=== PATIENT | female | born 1930 | race Caucasian/White ===

== ENCOUNTER 2016-11-22 15:43 | Outpatient (CLI) | payer MEDICARE | END 2016-11-22 15:44 | disposition home or self-care (01) | DX: M19.011 Primary osteoarthritis, right shoulder (principal) ==

== ENCOUNTER 2016-12-06 11:33 | Observation (INO) | payer MEDICARE ==
[2016-12-06] MEDS ORDERED: ASPIRIN CHEW 81 MG TABLET PO STA (12:12)
[2016-12-06] MEDS ORDERED: ASPIRIN CHEW 81 MG TABLET ONE (12:14)
[2016-12-06] MEDS ORDERED: SODIUM CHLORIDE FLUSH 0.9% 10 ML SYRINGE IVP PRN (14:10)
[2016-12-06] MEDS ORDERED: ONDANSETRON 4 MG/2 ML VIAL IVP PRN (14:10)
[2016-12-06] MEDS: SODIUM CHLORIDE FLUSH 0.9% 10 ML SYRINGE IVP SCH (21:29)
[2016-12-07] MEDS: SODIUM CHLORIDE FLUSH 0.9% 10 ML SYRINGE IVP SCH (06:43)
[2016-12-07] MEDS ORDERED: SALINE ENEMA 133 ML BOTTLE RC SCH (07:00)
[2016-12-07] MEDS ORDERED: ENOXAPARIN 40 MG/0.4 ML SYRINGE SUBQ SCH (09:00)
[2016-12-07] MEDS ORDERED: POLYETHYLENE GLYCOL 3350 17 GM PACKET PO SCH (09:00)
== END 2016-12-07 11:39 | disposition home or self-care (01) ==
DX: I10 Essential (primary) hypertension (principal); E03.9 Hypothyroidism, unspecified; F41.0 Panic disorder [episodic paroxysmal anxiety]; Z79.899 Other long term (current) drug therapy; Z66 Do not resuscitate
CPT/HCPCS: 36415; 71020; 80053; 80061; 81001; 83690; 84484; 85025; 85379; 93005; 93010; 93306; 99284; 99285; A9270; G0378

== ENCOUNTER 2017-07-12 11:16 | Outpatient (CLI) | payer MEDICARE ==
[2017-07-12 17:59] LABS: BUN - BLOOD UREA NITROGEN 19 mg/dL (6-20); CALCIUM 9.3 mg/dL (8.5-10.3); CARBON DIOXIDE - CO2 28 mmol/L (21-32); CHLORIDE 103 mmol/L (101-111); CREATININE 0.8 mg/dL (0.4-1.0); GFR - MDRD 68 (>89); GLUCOSE 99 mg/dL (70-100); POTASSIUM 3.8 mmol/L (3.5-5.0); SODIUM 139 mmol/L (135-145)
[2017-07-12 18:07] LABS: HEMOGLOBIN A1C 0.49 g/dL
== END 2017-07-12 11:17 | disposition home or self-care (01) ==
LOC: LAB.F 11:16
PROVIDERS: ATTEND Family Medicine
DX: D64.9 Anemia, unspecified (principal); R73.09 Other abnormal glucose; E03.9 Hypothyroidism, unspecified; I10 Essential (primary) hypertension
CPT/HCPCS: 36415; 80048; 83036; 84443

== ENCOUNTER 2017-10-04 13:42 | Outpatient (CLI) | payer MEDICARE ==
--- NOTE | 2017-10-06 14:01 | Mammography Report ---
DATE OF SERVICE: 10/04/2017 DIGITAL SCREENING MAMMOGRAM: 10/04/2017 CLINICAL INDICATION: An 87-year-old for screening. COMPARISON: 09/2016, 09/2015, 09/2014, 08/2013, 08/2012, 08/2011, 08/2010. TECHNIQUE: Routine CC and MLO projections were obtained of the breasts. FINDINGS: The breasts demonstrate scattered fibroglandular densities bilaterally. Coarse and puncta te, typically benign calcifications are present, no suspicious masses, clustered microcalcifications, or regions of architectural distortion are identified. IMPRESSION: Benign findings. RECOMMENDATION: Routine annual screening unless otherwise clinically indicated. BIRADS category 2 - Benign findings. STANDARD QUALIFYING STATEMENTS 1. This examination was reviewed with the aid of Computer-Aided Detection (CAD). 2. A negative or benign imaging report should not delay biopsy if clinically suspicious findings are present. Consider surgical consultation if warranted. More than 5% of cancers are not identified by imaging. 3. Dense breasts may obscure an underlying neoplasm. TD: 10/05/2017 10:59
== END 2017-10-04 13:43 | disposition home or self-care (01) ==
LOC: DI.S 13:42
PROVIDERS: ATTEND Family Medicine
DX: Z12.31 Encounter for screening mammogram for malignant neoplasm of breast (principal)
CPT/HCPCS: 77067

== ENCOUNTER 2018-02-24 15:37 | Outpatient (CLI) | payer MEDICARE ==
--- NOTE | 2018-02-25 22:03 | MRI Report ---
EXAM: RIGHT SHOULDER MRI WITHOUT CONTRAST EXAM DATE: 02/24/2018 04:39 PM. CLINICAL HISTORY: Right shoulder tendinitis. Previous right shoulder injury on 01/18/2018. Previous r otator cuff surgery in 2006. Previous labral surgery in 2008. COMPARISON: Right shoulder radiography from 11/22/2016 and right shoulder MRI from 11/25/2008. TECHNIQUE: Multiplanar, multisequence T1-weighted and fluid-sensitive sequences of the shoulder witho ut contrast. Other: None. FINDINGS: Acromioclavicular Region: The acromion is small from previous acromioplasty. Previous distal clavicle excision. Postoperative artifacts adjacent to the acromion and the distal aspect of the clavicle. Th e coracoacromial and coracoclavicular ligaments are intact. No subacromial/subdeltoid bursal fluid. Glenohumeral Region: No subluxation. Very small joint effusion. No loose bodies. The articular cartil age is unremarkable. The glenohumeral ligaments and joint capsule are unremarkable. Bone Marrow: Postoperative changes, postoperative artifacts, and enthesophytes at the greater tuberos ity. No acute fracture or bone lesions. Labrum: The superior labrum is partially absent, which may be due to degeneration or postoperative ch roseanna. No definite tear is seen. Musculature/Rotator Cuff: Postoperative artifacts at the distal supraspinatus tendon. The supraspinat us, infraspinatus, teres minor, and subscapularis tendons are intact without evidence of tear. No caitlyn ma or fatty atrophy. Biceps Tendon: The intra-articular segment of the long head biceps tendon is not seen. The bicipital groove segment of the long head biceps tendon is unremarkable. The findings may be due to previous bi ceps tenodesis. Other: The subcutaneous tissues are unremarkable. IMPRESSION: 1. Previous acromioplasty, distal clavicle excision, rotator cuff repair, and possible previous bicep s tenodesis. 2. Partially absent superior labrum which may be due to degeneration or postoperative change. 3. No rotator cuff tear. [facility] MUSCULOSKELETAL RADIOLOGY SECTION Referring Provider Line: [phone] SITE ID: [id number]
== END 2018-02-24 15:38 | disposition home or self-care (01) ==
LOC: DI 15:37
PROVIDERS: ATTEND Family Medicine
DX: M75.81 Other shoulder lesions, right shoulder (principal)